=== PATIENT | female | born 1960 ===

== ENCOUNTER 2019-05-19 00:53 | Observation (INO) | payer MEDICARE ==
[~2019-05-19] VITALS: Ht 160 cm; Wt 84.2 kg
[2019-05-19] MEDS ORDERED: ZESTRIL 5MG5 MG PO ×2 (01:20→16:12)
[2019-05-19] MEDS ORDERED: PRILOSEC10 MG PO (01:21)
[2019-05-19] MEDS ORDERED: ZOCOR5 MG (01:21)
--- NOTE | 2019-05-19 01:29 | NUR ---
Pt. arrived to the floor via stretcher with ems. Pt. able to ambulate to the bed independently. Pt. is A&OX3, assessment complete. Daughter at bedside. to assist with translation. Pt. denies needs at this time.
[2019-05-19 01:47] VITALS: BP 120/69; PULSE 73; TEMP 98
[2019-05-19 04:10] VITALS: BP 95/56; PULSE 73; TEMP 97.6
[2019-05-19 07:04] LABS: BASO # 0.1 (0.0-0.2); BASO % 0.8 % (0.0-2.0); EOS # 0.1 (0.0-0.7); EOS % 1.5 % (0-4.0); GRAN # 2.6 (1.4-6.5); GRAN % 33.7 % (42.2-75.2); HEMOGLOBIN 12.9 g/dl (12.5-16.0); LYMPH # 4.2 (1.2-3.4); MEAN CELL VOLUME 94 fl (80.0-100.0); MEAN CORPUSCULAR HEMOGLOBIN 32 pg (27.0-31.0); MEAN CORPUSCULAR HGB CONC 34 g/dl (33.0-37.0); MEAN PLATELET VOLUME 10.7 fl (7.4-10.4); MONO # 0.6 (0.1-0.6); MONO % 7.7 % (1.7-9.3); PLATELET COUNT 267 K/mm3 (130-400); RED BLOOD COUNT 4.04 M/mm3 (4.10-5.30); REDCELL DISTRIBUTION WIDTH-CV 11.9 % (11.5-14.5)
[2019-05-19 07:09] LABS: ALANINE AMINOTRANSFERASE 66 U/L (9-52); ALBUMIN 3.7 gm/dL (3.5-5.0); ALKALINE PHOSPHATASE 89 U/L (50-136); ANION GAP 10 mmol/L (7-16); AST,SGOT 46 U/L (15-37); BILIRUBIN,TOTAL 0.5 mg/dL (0.0-1.0); BLOOD UREA NITROGEN 18 mg/dL (7-17); CALCIUM 8.7 mg/dL (8.4-10.2); CARBON DIOXIDE 23 mmol/L (22-30); CHLORIDE 108 mmol/L (98-107); CHOLESTEROL 240 mg/dL (120-200); CHOLESTEROL RISK RATIO 7.7; CREATININE, serum 0.61 (0.52-1.25); GLUCOSE 81 mg/dL (74-106); HDL CHOLESTEROL 31 mg/dL; LDL CHOLESTEROL 141 mg/dL; SODIUM 142 mmol/L (137-145); TOTAL PROTEIN 7.1 gm/dL (6.4-8.2); TRIGLYCERIDE 342 mg/dL
[2019-05-19 07:21] LABS: TROPONIN-I 6 HR POST INITIAL < 0.012 ng/mL (0.000-0.034)
[2019-05-19 08:30] VITALS: BP 116/70; PULSE 67; TEMP 97.8
--- NOTE | 2019-05-19 09:00 | NUR ---
Patient alert and oriented, answers questions appropriately. See assessment. Heart tones strong and even. No c/o chest, neck or jaw pain or pressure. No other c/o at this time.
--- NOTE | 2019-05-19 11:18 | NUR ---
LUCAS met with the patient and patient's daughter, Quang, to discuss discharge plan. The patient lives in [place], [place] with a friend. The patient was visiting her daughter on [address]. She reports independence with ADLs and does not use any DME. The patient's PCP is a Dr. Bunch in [place] and she receives her medications at a pharmacy in [place]. She states she plans to receive her medications at [facility] upon discharge. The patient informed LUCAS that she does have Medicare. LUCAS attempted to consult financial counselor, Sandy. LUCAS left a voicemail. The patient does not have advanced directives, but she was interested in completing a DPOA-HC. LUCAS and RN, Chuy, witnessed the patient's signature. She designated her daughter, Quang. LUCAS provided the patient with the original and some copies. A copy of the DPOA-HC was placed in the patient's chart. The patient plans to return home with her daughter and then travel to [place] to visit her other children. No additional needs at this time.
[2019-05-19 12:27] VITALS: BP 118/75; PULSE 71; TEMP 98
[2019-05-19 12:56] VITALS: BP 118/75; PULSE 67; TEMP 98
--- NOTE | 2019-05-19 13:38 | NUR ---
LUCAS obtained a copy of the patient's Medicare card and provided financial counselor, Sandy, with the patient's Medicare number.
[2019-05-19] MEDS ORDERED: ASPIRIN 81M81 MG/TA2 PO (16:08)
[2019-05-19] MEDS ORDERED: NITROSTAT0.4 MG/TAB SL (16:08)
--- NOTE | 2019-05-19 17:37 | NUR ---
Discharge instructions reviewed with patient and daughter, verbalized understanding. Discharged via wheelchair to auto/home with daughter at 1710.
== END 2019-05-19 17:10 | disposition home or self-care (01) ==
LOC: SURG 00:53
PROVIDERS: Nurse Practitioner; ADMIT Student in an Organized Health Care Education/Training Program
DX: R07.9 Chest pain, unspecified (principal); I10 Essential (primary) hypertension; E78.5 Hyperlipidemia, unspecified; R94.5 Abnormal results of liver function studies; E66.9 Obesity, unspecified; Z90.710 Acquired absence of both cervix and uterus; I08.1 Rheumatic disorders of both mitral and tricuspid valves
CPT/HCPCS: 99239; G0378; J1650